=== PATIENT | female | born 1980 | race Hispanic/Latino ===

== ENCOUNTER 2017-02-16 21:43 | Emergency (ER) | payer MEDICAID, OTHER ==
[2017-02-16 21:44] VITALS: BMI 24.4
[2017-02-16 21:49] VITALS: BP 122/69; PULSE 78; RESP 18; TEMP 98; O2SAT 98
[2017-02-16 22:15] LABS: BASO % 0.5 % (0.0-2.0); EOS # 0.1 K/uL (0.0-0.7); EOS % 1.4 % (0.0-4.0); HEMOGLOBIN 13.4 g/dL (12.0-16.0); LYMPH # 2.8 K/uL (1.0-4.3); LYMPH % 44.3 % (20.0-40.0); MEAN CELL VOLUME 93.5 fl (81.0-99.0); MEAN CORPUSCULAR HEMOGLOBIN 31.9 pg (27.0-31.0); MEAN CORPUSCULAR HGB CONC 34.1 g/dL (33.0-37.0); MONO # 0.4 K/uL (0.0-0.8); MONO % 5.5 % (0.0-10.0); NEUT # 3.1 K/uL (1.8-7.0); NEUT % 48.3 % (50.0-75.0); RBC 4.21 Mil/uL (3.80-5.20); RED CELL DISTRIBUTION WIDTH 13.4 % (11.5-14.5); WHITE BLOOD COUNT 6.4 K/uL (4.8-10.8)
[2017-02-16 22:23] LABS: ALB/GLOB RATIO 1.3 (1.0-2.1); ALBUMIN 4.7 g/dL (3.5-5.0); ALT/SGPT 137 U/L (9-52); AST/SGOT 111 U/L (14-36); BLOOD UREA NITROGEN 10 mg/dl (7-17); CALCIUM 9.1 mg/dL (8.4-10.2); GFR AFRICAN-AMERICAN > 60; GFR NON-AFRICAN AMERICAN > 60
--- NOTE | 2017-02-16 22:57 | ED PDOC ---
HPI: Psych/Substance Abuse Time Seen by Provider: 02/16/17 21:55 Chief Complaint (Nursing): Medical Clearance History Per: Other (brought by asset protection officer under arrest for medical/psych evaluation. patient is uncooperative, verbally abusive. Patient required restraints due to her behavior.) Past Medical History Reviewed: Historical Data, Nursing Documentation, Vital Signs Vital Signs: Last Vital Signs Temp 98 F 02/16/17 21:46 Pulse 78 02/16/17 21:46 Resp 18 02/16/17 21:46 BP 122/69 02/16/17 21:46 Pulse Ox 98 02/16/17 21:46 - Medical History PMH: Anxiety, Arthritis, Asthma, Back Problems, COPD (SMOKER 1/2 PPD X 10 YRS), Depression, Pneumonia, Chronic Kidney Disease, Rheumatoid Arthritis Denies: Diabetes, Hepatitis, HIV, HTN, Seizures, Sexually Transmitted Disease - Surgical History Surgical History: - Family History Family History: States: Unknown Family Hx - Immunization History Hx Tetanus Toxoid Vaccination: No Hx Influenza Vaccination: No Hx Pneumococcal Vaccination: No - Home Medications Home Medications: Ambulatory Orders Medication Instructions Recorded Docusate [Colace] 100 mg PO BID #30 cap 05/25/16 Fluoxetine HCl [Prozac] 40 mg PO DAILY #14 capsule 05/25/16 Folic Acid 1 mg PO DAILY #14 tab 05/25/16 Gabapentin [Neurontin] 600 mg PO TID #45 tablet 05/25/16 Multimineral/Multivitamin 1 tab PO DAILY #14 tab 05/25/16 [Therapeutic-M Tab] Nicotine 21 mg/24 hr [Nicoderm Cq] 1 patch TD DAILY #14 patch 05/25/16 QUEtiapine [Seroquel XR] 400 mg PO HS #30 ter 05/25/16 Thiamine [Vitamin B1 Tab] 100 mg PO DAILY #14 tab 05/25/16 hydrOXYzine Pamoate [Vistaril] 50 mg PO BID #30 cap 05/25/16 traZODone [Desyrel] 100 mg PO HS PRN #14 tab 05/25/16 Fluoxetine HCl [Prozac] 40 mg PO BID 06/04/16 QUEtiapine [SEROquel XR] 400 mg PO HS 06/04/16 traZODone [Desyrel] 100 mg PO HS 06/04/16 Escitalopram [Lexapro] 10 mg PO DAILY #30 tab 06/09/16 Gabapentin [Neurontin] 300 mg PO TID #90 cap 06/09/16 QUEtiapine [Seroquel] 100 mg PO HS #30 tab 06/09/16 traZODone [Desyrel] 100 mg PO HS PRN #30 tab 06/09/16 - Allergies Allergies/Adverse Reactions: Allergies Allergy/AdvReac Type Severity Reaction Status Date / Time No Known Allergies Allergy Verified 06/04/16 08:30 Review of Systems Review Of Systems: ROS cannot be obtained secondary to pt's inabilty to answer questions. Physical Exam - Reviewed Nursing Documentation Reviewed: Yes Vital Signs Reviewed: Yes - Physical Exam Appears: Positive for: Well, Non-toxic, No Acute Distress Head Exam: Positive for: ATRAUMATIC, NORMAL INSPECTION, NORMOCEPHALIC Skin: Positive for: Normal Color, Warm, DRY Eye Exam: Positive for: Normal appearance ENT: Positive for: Normal ENT Inspection Neck: Positive for: Normal Cardiovascular/Chest: Positive for: Regular Rate, Rhythm Respiratory: Positive for: CNT, Normal Breath Sounds Gastrointestinal/Abdominal: Negative for: Distended Back: Positive for: Normal Inspection Extremity: Positive for: Normal ROM Neurologic/Psych: Positive for: Alert, Oriented - Laboratory Results Result Diagrams: 02/16/17 22:11 02/16/17 22:11 - ECG O2 Sat by Pulse Oximetry: 98 ED OBSERVATION Date of observation admission: 02/16/17 Time of observation admission: 22:56 - Goals of Observation Goals of observation are:: sobriety and crisis evaluation - Progress Note Progress Note: 02/16/17 23:29 patient still has explosions of abusive behavior. Her EtoH was 193 at 10pm. She denies doing other drugs. Will have crisis evaluation when cleared. Disposition - Clinical Impression Clinical Impression: Alcohol use disorder - Patient ED Disposition Is Patient to be Admitted: Transfer of Care Counseled Patient/Family Regarding: Diagnosis - Disposition Disposition: Transfer of Care Disposition Time: 23:30 Condition: GUARDED - Pt Status Changed To: Hospital Disposition Of: Observation - POA Present On Arrival: None
--- NOTE | 2017-02-16 23:53 | ED PDOC ---
- Laboratory Results Result Diagrams: 02/16/17 22:11 02/16/17 22:11 - ECG O2 Sat by Pulse Oximetry: 98 Medical Decision Making Medical Decision Making: Patient s/o from Dr. Parr at 0000 pending crisis eval. 0022: Patient cleared by crisis with diagnosis of adjustment disorder and alcohol use disorder. Patient discharged with law enforcement. Dx: alcohol use disorder, adjustment disorder stable Patient medically and psychiatrically stable for incarceration Scribe Attestation: Documented by Hayden Haque acting as a scribe for Luis Starks MD. Provider Scribe Attestation: All medical record entries made by the Scribe were at my direction and personally dictated by me. I have reviewed the chart and agree that the record accurately reflects my personal performance of the history, physical exam, medical decision making, and the department course for this patient. I have also personally directed, reviewed, and agree with the discharge instructions and disposition. Disposition - Clinical Impression Clinical Impression: Alcohol use disorder, Adjustment disorder - POA Present On Arrival: None - Disposition Disposition: Discharged/Transfer to Law Enforcement Disposition Time: 22:55 Condition: STABLE Additional Instructions: Patient is medically and psychiatrically stable for incarceration. Instructions: Stress (ED), Abuse of Alcohol (ED)
== END 2017-02-17 00:25 | disposition home or self-care (01) ==
LOC: H.ER 21:43
DX: F10.129 Alcohol abuse with intoxication, unspecified (principal); F43.20 Adjustment disorder, unspecified

== ENCOUNTER 2017-02-17 04:32 | Emergency (ER) | payer MEDICAID ==
[2017-02-17 04:33] VITALS: BMI 24.4
[2017-02-17 04:43] VITALS: BP 130/93; PULSE 93; RESP 17; TEMP 98.1; O2SAT 98
--- NOTE | 2017-02-17 04:58 | ED PDOC ---
HPI: General Adult Time Seen by Provider: 02/17/17 04:47 Chief Complaint (Nursing): Medical Clearance Chief Complaint (Provider): medical clearance History Per: Patient History/Exam Limitations: no limitations Additional Complaint(s): 36yo F was in ED 02/16/17 and released under custody of law enforcement on cleared psychically with alcohol d/o and anxiety. pt was in custody at [facility] and clamied she was having a panic attack. all symptoms have now subsided and she no longer has anxiety. pt with long standing hx of anxiety Past Medical History Reviewed: Historical Data, Nursing Documentation, Vital Signs Vital Signs: Last Vital Signs Temp 98.1 F 02/17/17 04:37 Pulse 93 H 02/17/17 04:37 Resp 17 02/17/17 04:37 BP 130/93 H 02/17/17 04:37 Pulse Ox 98 02/17/17 04:37 - Medical History PMH: Anxiety, Arthritis, Asthma, Back Problems, COPD (SMOKER 1/2 PPD X 10 YRS), Depression, Pneumonia, Chronic Kidney Disease, Rheumatoid Arthritis Denies: Diabetes, Hepatitis, HIV, HTN, Seizures, Sexually Transmitted Disease - Surgical History Surgical History: - Family History Family History: States: Unknown Family Hx - Social History Alcohol: > 2 Drinks/Day - Immunization History Hx Tetanus Toxoid Vaccination: No Hx Influenza Vaccination: No Hx Pneumococcal Vaccination: No - Home Medications Home Medications: Ambulatory Orders Medication Instructions Recorded Docusate [Colace] 100 mg PO BID #30 cap 05/25/16 Fluoxetine HCl [Prozac] 40 mg PO DAILY #14 capsule 05/25/16 Folic Acid 1 mg PO DAILY #14 tab 05/25/16 Gabapentin [Neurontin] 600 mg PO TID #45 tablet 05/25/16 Multimineral/Multivitamin 1 tab PO DAILY #14 tab 05/25/16 [Therapeutic-M Tab] Nicotine 21 mg/24 hr [Nicoderm Cq] 1 patch TD DAILY #14 patch 05/25/16 QUEtiapine [Seroquel XR] 400 mg PO HS #30 ter 05/25/16 Thiamine [Vitamin B1 Tab] 100 mg PO DAILY #14 tab 05/25/16 hydrOXYzine Pamoate [Vistaril] 50 mg PO BID #30 cap 05/25/16 traZODone [Desyrel] 100 mg PO HS PRN #14 tab 05/25/16 Fluoxetine HCl [Prozac] 40 mg PO BID 06/04/16 QUEtiapine [SEROquel XR] 400 mg PO HS 06/04/16 traZODone [Desyrel] 100 mg PO HS 06/04/16 Escitalopram [Lexapro] 10 mg PO DAILY #30 tab 06/09/16 Gabapentin [Neurontin] 300 mg PO TID #90 cap 06/09/16 QUEtiapine [Seroquel] 100 mg PO HS #30 tab 06/09/16 traZODone [Desyrel] 100 mg PO HS PRN #30 tab 06/09/16 - Allergies Allergies/Adverse Reactions: Allergies Allergy/AdvReac Type Severity Reaction Status Date / Time No Known Allergies Allergy Verified 06/04/16 08:30 Review of Systems ROS Statement: Except As Marked, All Systems Reviewed And Found Negative Psych: Positive for: Anxiety Physical Exam - Reviewed Nursing Documentation Reviewed: Yes Vital Signs Reviewed: Yes - Physical Exam Appears: Positive for: Non-toxic, No Acute Distress, Uncomfortable Head Exam: Positive for: ATRAUMATIC, NORMAL INSPECTION, NORMOCEPHALIC Skin: Positive for: Normal Color, Warm, DRY Eye Exam: Positive for: EOMI, Normal appearance, PERRL ENT: Positive for: Normal ENT Inspection Cardiovascular/Chest: Positive for: Regular Rate, Rhythm Respiratory: Positive for: CNT, Normal Breath Sounds Neurologic/Psych: Positive for: Alert, Oriented, Mood/Affect (anxious) - ECG O2 Sat by Pulse Oximetry: 98 - Progress ED Course And Treament: pt very anxious in ED given xanax and water. pt also requesting nicoderm patch . pt given a nicoderm patch. Medical Decision Making Medical Decision Making: PT is stable for incarceration at this time. Disposition - Clinical Impression Clinical Impression: Mixed anxiety and depressive disorder - Patient ED Disposition Is Patient to be Admitted: No - Disposition Disposition: Discharged/Transfer to Law Enforcement Disposition Time: 05:09 Condition: STABLE Additional Instructions: Alison Pace is medically stable at this time for incarceration. Instructions: Anxiety (ED)
== END 2017-02-17 05:30 ==
LOC: H.ER 04:32
DX: F41.0 Panic disorder [episodic paroxysmal anxiety] (principal); F41.8 Other specified anxiety disorders; J44.9 Chronic obstructive pulmonary disease, unspecified; M06.9 Rheumatoid arthritis, unspecified; N18.9 Chronic kidney disease, unspecified